=== PATIENT | female | born 1970 | race American Indian/Alaskan Native ===

== ENCOUNTER 2018-02-06 11:07 | Outpatient (CLI) | payer OTHER ==
--- NOTE | 2018-02-07 11:23 | Mammography Report ---
BILATERAL DIGITAL SCREENING MAMMOGRAM with CAD : 02/06/18 11:07:00 CLINICAL: Routine screening. COMPARISON:None available. FINDINGS: The breasts are heterogeneously dense, which may obscure small masses.A few bilateral benign calcifications. No mass, architectural distortion or suspicious calcifications. IMPRESSION: No mammographic evidence of malignancy. BI-RADS CATEGORY: 2 -- Benign RECOMMENDATION: Routine mammographic screening in one year. COMMENT: Patient follow-up letters are generated by our [employer] application.
== END 2018-02-06 11:08 | disposition home or self-care (01) ==
LOC: MAMMO 11:07
PROVIDERS: ATTEND Internal Medicine
DX: Z12.31 Encounter for screening mammogram for malignant neoplasm of breast (principal)
CPT/HCPCS: 77067

== ENCOUNTER 2019-02-07 12:02 | Outpatient (CLI) | payer OTHER ==
--- NOTE | 2019-02-07 13:31 | Mammography Report ---
DIGITAL SCREENING MAMMOGRAM WITH CAD, 02/07/2019 INDICATION: Routine screening mammography. TECHNIQUE: Digital bilateral 2D mammography was obtained in the craniocaudal and mediolateral obliq ue projections. This examination was interpreted with the benefit of Computer-Aided Detection analysi s. COMPARISON: 02/06/2018 FINDINGS: Breast Density: The breasts are heterogeneously dense, which may obscure small masses. There is no evidence of dominant mass, suspicious calcifications or architectural distortion in eithe r breast. No interval change. IMPRESSION: No evidence of malignancy. BI-RADS Category 1: Negative. No mammographic evidence of malignancy. Recommend routine screening m ammography in one year. A "normal" or negative report should not discourage follow up or biopsy of a clinically significant f inding. A written summary of these findings will be mailed to the patient. The patient will be entered into a mammography reporting system which will generate a reminder letter for the patient's next appointmen t at the appropriate interval. The [employer] recommends yearly mammograms starting at age 40 and continuing as l bear as a woman is in good health. Breast MRI is recommended for women with an approximate 20-25% or greater lifetime risk of breast cancer, including women with a strong family history of breast or ova obi cancer or who have been treated for Hodgkin's disease. Signer Name: Patricia Bryant MD Signed: 02/07/2019 1:26 PM Workstation Name: [id number]
== END 2019-02-07 12:03 | disposition home or self-care (01) ==
LOC: MAMMO 12:02
PROVIDERS: ATTEND Internal Medicine
DX: Z12.31 Encounter for screening mammogram for malignant neoplasm of breast (principal)
CPT/HCPCS: 77067

== ENCOUNTER 2020-02-10 11:21 | Outpatient (CLI) | payer OTHER ==
--- NOTE | 2020-02-10 17:04 | Mammography Report ---
DIGITAL SCREENING MAMMOGRAM WITH CAD, 02/10/2020 INDICATION: Routine screening mammography. TECHNIQUE: Digital bilateral 2D mammography was obtained in the craniocaudal and mediolateral obliq ue projections. This examination was interpreted with the benefit of Computer-Aided Detection analysi s. COMPARISON: 02/07/2019. FINDINGS: Breast Density: There are scattered areas of fibroglandular density. There is no evidence of dominant mass, suspicious calcifications or architectural distortion in eithe r breast. IMPRESSION: Follow up recommendation: Routine yearly BI-RADS Category 1: Negative. A "normal" or negative report should not discourage follow up or biopsy of a clinically significant f inding. A written summary of these findings will be mailed to the patient. The patient will be entered into a mammography reporting system which will generate a reminder letter for the patient's next appointmen t at the appropriate interval. The [employer] recommends yearly mammograms starting at age 40 and continuing as l bear as a woman is in good health. Breast MRI is recommended for women with an approximate 20-25% or greater lifetime risk of breast cancer, including women with a strong family history of breast or ova obi cancer or who have been treated for Hodgkin's disease. Signer Name: Shahram Stoner MD Signed: 02/10/2020 5:00 PM Workstation Name: [id number]
== END 2020-02-10 11:22 | disposition home or self-care (01) ==
LOC: MAMMO 11:21
PROVIDERS: ATTEND Obstetrics & Gynecology
DX: Z12.31 Encounter for screening mammogram for malignant neoplasm of breast (principal); N64.89 Other specified disorders of breast
CPT/HCPCS: 77067

== ENCOUNTER 2021-02-10 10:19 | Outpatient (CLI) | payer OTHER ==
--- NOTE | 2021-02-10 12:10 | Mammography Report ---
DIGITAL SCREENING MAMMOGRAM WITH CAD, 02/10/2021 CLINICAL INFORMATION / INDICATION: Routine screening mammography. SCREENING MAMMOGRAM TECHNIQUE: Digital bilateral 2D mammography was obtained in the craniocaudal and mediolateral obliqu e projections. This examination was interpreted with the benefit of Computer-Aided Detection analysis . COMPARISON: 02/06/2018 through 02/10/2020. FINDINGS: Breast Density: The breasts are heterogeneously dense, which may obscure small masses. No dominant mass, suspicious calcifications, or architectural distortion in either breast. IMPRESSION: No mammographic evidence of malignancy. Follow up recommendation: Routine yearly BI-RADS Category 1: Negative. A "normal" or negative report should not discourage follow up or biopsy of a clinically significant f inding. A written summary of these findings will be mailed to the patient. The patient will be entered into a mammography reporting system which will generate a reminder letter for the patient's next appointmen t at the appropriate interval. The [employer] recommends yearly mammograms starting at age 40 and continuing as l bear as a woman is in good health. Breast MRI is recommended for women with an approximate 20-25% or greater lifetime risk of breast cancer, including women with a strong family history of breast or ova obi cancer or who have been treated for Hodgkin's disease. Signer Name: Angelito Norman MD Signed: 02/10/2021 12:05 PM Workstation Name: [id number]
== END 2021-02-10 10:20 | disposition home or self-care (01) ==
LOC: MAMMO 10:19
PROVIDERS: ATTEND Obstetrics & Gynecology
DX: Z12.31 Encounter for screening mammogram for malignant neoplasm of breast (principal)
CPT/HCPCS: 77067

== ENCOUNTER 2022-02-11 11:00 | Outpatient (CLI) | payer OTHER ==
--- NOTE | 2022-02-15 09:37 | Mammography Report ---
DIGITAL SCREENING MAMMOGRAM WITH CAD, 02/11/2022 CLINICAL INFORMATION / INDICATION: Routine screening mammography. TECHNIQUE: Digital bilateral 2D mammography was obtained in the craniocaudal and mediolateral obliqu e projections. This examination was interpreted with the benefit of Computer-Aided Detection analysis . COMPARISON: 02/10/2021, 02/10/2020 FINDINGS: Breast Density: There are scattered areas of fibroglandular density. No dominant mass, suspicious calcifications, or architectural distortion in the left breast. There is an unchanged subareolar left breast nodular density. Enlarging nodularity is seen in the right breast along the outer right breast middle depth measuring up to 8.6 mm and located 4 cm from the nipple. A subareolar right breast nodular density is unchanged . No other significant abnormality of the right breast. IMPRESSION: Enlarging nodularity in the right breast is favored to represent evolving fibrocystic micki nges. Further evaluation with a limited right breast ultrasound is recommended. Follow up recommendation: Ultrasound BI-RADS Category 0: INCOMPLETE. Needs additional imaging evaluation and/or prior mammograms for jenny chino. A "normal" or negative report should not discourage follow up or biopsy of a clinically significant f inding. A written summary of these findings will be mailed to the patient. The patient will be entered into a mammography reporting system which will generate a reminder letter for the patient's next appointmen t at the appropriate interval. The [employer] recommends yearly mammograms starting at age 40 and continuing as l bear as a woman is in good health. Breast MRI is recommended for women with an approximate 20-25% or greater lifetime risk of breast cancer, including women with a strong family history of breast or ova obi cancer or who have been treated for Hodgkin's disease. Signer Name: Wali Al MD Signed: 02/15/2022 9:33 AM Workstation Name: [id number]
== END 2022-02-11 11:01 | disposition home or self-care (01) ==
LOC: MAMMO 11:00
PROVIDERS: ATTEND Obstetrics & Gynecology
DX: Z12.31 Encounter for screening mammogram for malignant neoplasm of breast (principal)
CPT/HCPCS: 77067

== ENCOUNTER 2022-03-03 08:33 | Outpatient (CLI) | payer OTHER ==
--- NOTE | 2022-03-03 09:53 | Ultrasound Report ---
ULTRASOUND BREAST RIGHT LIMITED, 03/03/2022 CLINICAL INFORMATION / INDICATION: R92.8 ABNORMAL MAMMOGRAM. TECHNIQUE: Targeted ultrasound evaluation was performed of the area of interest. COMPARISON: Screening mammogram dated February 11, 2022 FINDINGS: Ultrasound imaging of the right breast at the 6:00 position, 2 cm from the nipple demonstrates a well -circumscribed anechoic lesion with increased through transmission measuring approximately 0.7 x 0.6 x 0.5 cm. This corresponds the area of mammographic concern. Limited evaluation right axilla demonstr ates no lymphadenopathy. IMPRESSION: No sonographic evidence of malignancy. Follow up recommendation: Routine yearly screening mammogram. BI-RADS Category 2: BENIGN. A normal or "negative" report should not preclude biopsy or follow-up of a clinically suspicious find ing. Signer Name: Arnold Garcias DO Signed: 03/03/2022 9:49 AM Workstation Name: [id number]
== END 2022-03-03 08:34 | disposition home or self-care (01) ==
LOC: MAMMO 08:33
PROVIDERS: ATTEND Obstetrics & Gynecology
DX: R92.8 Other abnormal and inconclusive findings on diagnostic imaging of breast (principal)